=== PATIENT | male | born 1955 | race Caucasian/White ===

== ENCOUNTER → 2020-01-25 11:27 | Outpatient (CLI) | payer BC, MEDICARE, SELFPAY ==
--- NOTE | 2020-01-25 11:36 | CA_ITS ---
APPROVED REPORT Bilateral Lower Extremity Venous Study for Senior Regulatory Affairs Specialist: BRIGHT Indications Lower Extremity Swelling: Right Vein Imaging CFV (R): Non-Compressible FEM (R): Non-Compressible POP (R): Non-Compressible GSV (R): Compressible Peroneals (R):Not Visualized GAS (R): Not Visualized Findings Acute DVT is visualized in the COMMON FEMEROL AND POPLITEAL veins of the right lower extremity. Dr. Briceno notified patient to return to office Conclusion Acute DVT is visualized in the COMMON FEMEROL AND POPLITEAL veins of the right lower extremity Electronically signed by : Ramon Vo MD 01/25/2020 17:22:43
== END ==
PROVIDERS: PCP Family Medicine; Visit Provider Family Medicine
DX: M79.89 Other specified soft tissue disorders (principal)
CPT/HCPCS: 93971

== ENCOUNTER → 2020-02-08 10:09 | Outpatient (CLI) | payer BC, MEDICARE, SELFPAY ==
--- NOTE | 2020-02-08 10:17 | CA_ITS ---
APPROVED REPORT Right Lower Extremity Venous Study for DVT. Power Wood Sawyer: HERMINIA Indications DVT of Lower Extremity: Right DVT in RT CFV, POPV 01/25/2020. Patient is currently taking Eloquis. Risk Factors Obesity Vein Imaging CFV (R): Thrombus, Non-Compressible FEM (R): Thrombus, Non-Compressible POP (R): Thrombus, Non-Compressible PTV (R): Not Visualized GSV (R): Compressible SSV (R): Compressible Peroneals (R):Not Visualized Conclusion Color flow duplex of the right lower extremity demonstrates DVT involving the following Veins:Common Femoral, Femoral, Popliteal. Little change of DVT since study done 01/25/20. Electronically signed by : Ramon Vo MD 02/08/2020 18:52:04
== END ==
PROVIDERS: PCP Family Medicine; Visit Provider Family Medicine
DX: I82.409 Acute embolism and thrombosis of unspecified deep veins of unspecified lower extremity (principal)
CPT/HCPCS: 93971

== ENCOUNTER → 2020-05-03 09:41 | Outpatient (CLI) | payer BC, MEDICARE, SELFPAY ==
--- NOTE | 2020-05-03 09:47 | CA_ITS ---
APPROVED REPORT Right Lower Extremity Venous Study for DVT. Nurse Sexual Assault: MELISSA DasT Indications DVT of Lower Extremity: Right F/U DVT RLE Risk Factors Obesity Past History DVT : Right Medications PT ON ELIQUIS Vein Imaging CFV (R): compressive, spontaneous, phasic, augmentation FEM (R): compressive, spontaneous, phasic, augmentation POP (R): compressive, spontaneous, phasic, augmentation PTV (R): Compressible GSV (R): Compressible Peroneals (R):Compressible GAS (R): Compressible Findings Study suggests no evidence of DVT of the right lower extremity. Study suggests no evidence of SVT of the right lower extremity. Conclusion Study suggests no evidence of DVT of the right lower extremity. Study suggests no evidence of SVT of the right lower extremity. Electronically signed by : Ramon Vo MD 05/03/2020 17:25:45
== END ==
PROVIDERS: PCP Family Medicine; Visit Provider Family Medicine
DX: Z86.718 Personal history of other venous thrombosis and embolism; Z79.01 Long term (current) use of anticoagulants
CPT/HCPCS: 93971

== ENCOUNTER → 2020-11-29 13:57 | Outpatient (CLI) | payer BC, MEDICARE, SELFPAY ==
[2020-11-29 15:05] LABS: Blood Urea Nitrogen 18 mg/dl (9-20); Estimated Glomerular Filt Rate 67 ml/min (>60); GFR (African American) 81 ML/MIN (>60)
== END ==
PROVIDERS: Visit Provider Family Medicine
DX: M54.2 Cervicalgia (principal); R20.0 Anesthesia of skin; R20.2 Paresthesia of skin
CPT/HCPCS: 36415; 82565; 84520

== ENCOUNTER → 2020-12-04 14:34 | Outpatient (CLI) | payer BC, MEDICARE, SELFPAY ==
--- NOTE | 2020-12-04 14:44 | CT_ITS ---
PROCEDURE: CT CERVICAL SPINE WO/W CON CLINICAL INDICATION: ANESTHESIA OF SKIN,NECK PAIN Rt sided numbness down arm into 4th and 5th digit x3wks COMPARISON: No exams were available for comparison TECHNIQUE: Axial images obtained with sagittal and coronal reformats. All CT scans at the facility use one or more dose reduction, viz: automated exposure control, ma/kV adjustment per patient size (including targeted exams where dose is matched to indication, i.e. head), or iterative reconstruction technique. Axial spiral CT scanning performed of the cervical spine beginning at the base of the skull and continuing to the upper T-spine. 3-D multiplanar reconstruction with 3-D manipulation of volumetric data set in image rendering was completed by the radiologist and/or technologist with the supervision of the radiologist on independent workstation. FINDINGS: There is normal alignment. No acute fracture or dislocation. No lytic or blastic change. C2-C3: Unremarkable. C3-C4: Degenerative disc disease with 2 mm anterolisthesis of C3. There is uncovertebral and facet hypertrophy causing moderate to severe bilateral foraminal narrowing. There is minimal bulging disc with canal stenosis. C4-C5: Mild degenerative disc disease with prominent right-sided facet hypertrophic change and severe right-sided foraminal narrowing. There is mild left-sided foraminal narrowing. C5-C6: Degenerative disc disease with facet and uncovertebral hypertrophy with severe bilateral foraminal narrowing bulging disc and canal stenosis of 9 mm. C6-C7: Degenerative disc disease with endplate hypertrophic changes with severe bony canal stenosis of 8 mm. Moderate to severe bilateral foraminal narrowing. C7-T1: Degenerative disc disease with mild to moderate bilateral foraminal narrowing. Lung apices are clear. There is bilateral thyroid enlargement with inferior extension of the left lobe into the upper substernal region. Posterior nodular configuration of the right lobe of the thyroid gland measuring 2 cm and may represent a thyroid nodule. Thyroid ultrasound suggested for further evaluation. There is a complex lobular soft tissue density with some calcification noted in the left side of the vallecula suspicious for polypoid mass measuring 1.8 cm. Direct visualization is suggested. IMPRESSION: 1. Multilevel cervical spondylosis with canal stenosis and severe foraminal narrowing. Please see above for detailed description at each level. 2. Polypoid partially calcified mass in the left vallecula at 1.8 cm. ENT consult with direct visualization suggested. 3. Enlarged thyroid gland with suspected 2 cm right thyroid nodule. Suggest thyroid ultrasound for further evaluation. Dictated by: Ramon Vo MD 12/05/2020 07:22 Ramon Vo MD in [place] 12/05/2020 07:22
== END ==
PROVIDERS: PCP Family Medicine; Visit Provider Family Medicine
DX: M54.2 Cervicalgia (principal); R20.0 Anesthesia of skin; R20.2 Paresthesia of skin
CPT/HCPCS: 72127; Q9967

== ENCOUNTER 2021-02-20 09:00 | Outpatient (RCR) | payer BC, MEDICARE, SELFPAY | END 2021-02-20 09:05 | disposition home or self-care (01) | LOC: PT 09:00 | PROVIDERS: PCP Family Medicine; Visit Provider Family Medicine | DX: M54.2 Cervicalgia (principal); R20.2 Paresthesia of skin | CPT/HCPCS: 97010; 97012; 97014; 97110; 97140; 97163; 97164; G0283 ==